=== PATIENT | male | born 1980 | race Caucasian/White ===

== ENCOUNTER 2019-02-22 07:11 | Emergency (ER) | payer MEDICAID ==
[2019-02-22] MEDS ORDERED: Ibuprofen 600 MG Tab PO ONE (07:47)
[2019-02-22] MEDS ORDERED: Doxycycline 100 MG in Sodium Chloride 0.9% 100 ML IV ONE (07:47)
--- NOTE | 2019-02-22 07:51 | EDM.PDOC ---
ED HPI GENERAL MEDICAL PROBLEM - General Chief Complaint: Skin Complaint Stated Complaint: RASH, FEVER Time Seen by Provider: 02/22/19 07:47 Source of Information: Reports: Patient History Limitations: Reports: No Limitations - History of Present Illness INITIAL COMMENTS - FREE TEXT/NARRATIVE: pt arrived with a fever and total body aches. He has been ill for about 3 days. He has not been vomiting. He has a history of a tick bite about 1 month ago. He did not have a definite tick in the last week. He has a red target looking lesion on the inner aspect of his left knee. This does have a dark spot in the center of the leson. Onset: Gradual, Other (Pt has been ill for 3 days. ) Duration: Hour(s): Location: Reports: Lower Extremity, Left, Generalized Associated Symptoms: Reports: Fever/Chills, Headaches, Malaise Left Leg Pain Score (Numeric/FACES): 7 - Related Data Allergies Allergy/AdvReac Type Severity Reaction Status Date / Time Sulfa (Sulfonamide Allergy Cannot Verified 02/22/19 07:28 Antibiotics) Remember Home Meds: Home Meds NK [No Known Home Meds] 02/22/19 [History] Past Medical History - Past Health History Medical/Surgical History: Denies Medical/Surgical History Social & Family History - Tobacco Use Smoking Status *Q: Current Every Day Smoker Years of Tobacco use: 25 Packs/Tins Daily: 0.5 - Caffeine Use Caffeine Use: Reports: Coffee - Recreational Drug Use Recreational Drug Type: Reports: Marijuana/Hashish ED ROS GENERAL - Review of Systems Review Of Systems: See Below Constitutional: Reports: Fever, Chills, Malaise, Weakness HEENT: Reports: No Symptoms Respiratory: Reports: No Symptoms Cardiovascular: Reports: No Symptoms Endocrine: Reports: No Symptoms GI/Abdominal: Reports: No Symptoms : Reports: No Symptoms Musculoskeletal: Reports: Muscle Pain, Muscle Stiffness Skin: Reports: Other ( bulls eye lesion on the left knee area. ) Neurological: Reports: Dizziness ED EXAM, SKIN/RASH Exam: See Below Text/Narrative:: pt has a lesion on the inside of the left knee. This is 4 inches in diameter. It is very red and it is firm and tender in the misddle. It is darker in the center. Exam Limited By: No Limitations General Appearance: Alert, Anxious, Mild Distress, Other (pt has a temp. ) Eye Exam: Right Eye: Papilledema Ears: Normal TMs Nose: Normal Inspection Throat/Mouth: Normal Inspection Head: Atraumatic Neck: Normal Inspection Respiratory/Chest: No Respiratory Distress Cardiovascular: Regular Rate, Rhythm GI/Abdominal: Soft, Non-Tender (Male) Exam: Deferred Rectal (Males) Exam: Deferred Back Exam: Normal Inspection Extremities: Other (pt has a large red area on the inside of the left knee. It is tender and firm in the center. He is feeling ill generally. He did have tick bites about 1 month ago. ) Neurological: Alert, Oriented Psychiatric: Normal Affect Skin: Warm, Erythema, Other (it has an appearance of a target lesion) Location, Skin: Lower Extremity, Left Characteristics: Erythematous Associated features: Warmth, Tenderness, Swelling Course - Vital Signs Last Recorded V/S: Last Vital Signs Temp 37.4 C 02/22/19 08:46 Pulse 70 02/22/19 08:46 Resp 16 02/22/19 08:46 BP 116/66 02/22/19 08:46 Pulse Ox 97 02/22/19 08:46 - Orders/Labs/Meds Orders: Active Orders 24 hr Category Date Time Status BABESIA MICROTI ANTIBODY PANEL Stat Lab 02/22/19 07:52 Received CULTURE URINE [RM] Stat Lab 02/22/19 08:22 Received HUMAN GRANULOCYTIC VIANEY-HGE Stat Lab 02/22/19 07:52 Received LYME, TOTAL AB TEST/REFLEX Stat Lab 02/22/19 07:52 Received Sodium Chloride 0.9% [Normal Saline] 1,000 ml Med 02/22/19 08:00 Active IV ASDIRECTED Medication Orders Sodium Chloride (Normal Saline) 1,000 mls @ 999 mls/hr IV ASDIRECTED MAURISIO Last Admin: 02/22/19 08:04 Dose: 999 mls/hr Labs: Laboratory Tests 02/22/19 02/22/19 02/22/19 Range/Units 07:52 07:52 07:52 WBC 7.9 (4.5-11.0) K/uL RBC 5.11 (4.30-5.90) M/uL Hgb 15.8 H (12.0-15.0) g/dL Hct 45.4 (40.0-54.0) % MCV 89 (80-98) fL MCH 31 (27-31) pg MCHC 35 (32-36) % Plt Count 203 (150-400) K/uL Neut % (Auto) 74 H (36-66) % Lymph % (Auto) 11 L (24-44) % Waldo % (Auto) 14 H (2-6) % Eos % (Auto) 0 L (2-4) % Baso % (Auto) 1 (0-1) % Sodium 136 L (140-148) mmol/L Potassium 4.2 (3.6-5.2) mmol/L Chloride 101 (100-108) mmol/L Carbon Dioxide 21 (21-32) mmol/L Anion Gap 18.2 H (5.0-14.0) mmol/L BUN 11 (7-18) mg/dL Creatinine 1.0 (0.8-1.3) mg/dL Est Cr Clr Drug Dosing 92.36 mL/min Estimated GFR (MDRD) > 60 (>60) Glucose 121 H (74-106) mg/dL Calcium 9.0 (8.5-10.1) mg/dL Total Bilirubin 0.4 (0.2-1.0) mg/dL AST 27 (15-37) U/L ALT 37 (12-78) U/L Alkaline Phosphatase 76 (46-116) U/L C-Reactive Protein 1.84 H (0.0-0.3) mg/dL Total Protein 7.5 (6.4-8.2) g/dL Albumin 3.9 (3.4-5.0) g/dL Globulin 3.6 H (2.3-3.5) g/dL Albumin/Globulin Ratio 1.1 L (1.2-2.2) Urine Color Urine Appearance Urine pH (4.5-8.0) Ur Specific [place] (1.008-1.030) Urine Protein (NEGATIVE) mg/dL Urine Glucose (UA) (NEGATIVE) mg/dL Urine Ketones (NEGATIVE) mg/dL Urine Occult Blood (NEGATIVE) Urine Nitrite (NEGAITVE) Urine Bilirubin (NEGATIVE) Urine Urobilinogen (NORMAL) mg/dL Ur Leukocyte Esterase (NEGATIVE) Urine RBC (0-5) Urine WBC (0-5) Ur Epithelial Cells Amorphous Sediment Urine Bacteria Urine Mucus 02/22/19 Range/Units 08:01 WBC (4.5-11.0) K/uL RBC (4.30-5.90) M/uL Hgb (12.0-15.0) g/dL Hct (40.0-54.0) % MCV (80-98) fL MCH (27-31) pg MCHC (32-36) % Plt Count (150-400) K/uL Neut % (Auto) (36-66) % Lymph % (Auto) (24-44) % [place] % (Auto) (2-6) % Eos % (Auto) (2-4) % Baso % (Auto) (0-1) % Sodium (140-148) mmol/L Potassium (3.6-5.2) mmol/L Chloride (100-108) mmol/L Carbon Dioxide (21-32) mmol/L Anion Gap (5.0-14.0) mmol/L BUN (7-18) mg/dL Creatinine (0.8-1.3) mg/dL Est Cr Clr Drug Dosing mL/min Estimated GFR (MDRD) (>60) Glucose (74-106) mg/dL Calcium (8.5-10.1) mg/dL Total Bilirubin (0.2-1.0) mg/dL AST (15-37) U/L ALT (12-78) U/L Alkaline Phosphatase (46-116) U/L C-Reactive Protein (0.0-0.3) mg/dL Total Protein (6.4-8.2) g/dL Albumin (3.4-5.0) g/dL Globulin (2.3-3.5) g/dL Albumin/Globulin Ratio (1.2-2.2) Urine Color Yellow Urine Appearance Clear Urine pH 5.0 (4.5-8.0) Ur Specific [place] 1.015 (1.008-1.030) Urine Protein Negative (NEGATIVE) mg/dL Urine Glucose (UA) Normal (NEGATIVE) mg/dL Urine Ketones 50 H (NEGATIVE) mg/dL Urine Occult Blood Large (NEGATIVE) Urine Nitrite Negative (NEGAITVE) Urine Bilirubin Negative (NEGATIVE) Urine Urobilinogen Normal (NORMAL) mg/dL Ur Leukocyte Esterase Negative (NEGATIVE) Urine RBC 5-10 H (0-5) Urine WBC Not seen (0-5) Ur Epithelial Cells Few Amorphous Sediment Not seen Urine Bacteria Not seen Urine Mucus Many Meds: Medications Generic Name Dose Route Start Last Admin Trade Name Carlo PRN Reason Stop Dose Admin Sodium Chloride 1,000 mls @ 999 mls/hr 02/22/19 08:00 02/22/19 08:04 Normal Saline IV 999 mls/hr ASDIRECTED MAURISIO Administration Discontinued Medications Generic Name Dose Route Start Last Admin Trade Name Carlo PRN Reason Stop Dose Admin Doxycycline Hyclate 100 mg/ 100 mls @ 100 mls/hr 02/22/19 07:47 02/22/19 08: 04 Sodium Chloride IV 02/22/19 08:46 100 mls/hr ONETIME ONE Administration Ibuprofen 600 mg 02/22/19 07:47 02/22/19 08:03 Motrin PO 02/22/19 07:48 600 mg ONETIME ONE Administration - Re-Assessments/Exams Free Text/Narrative Re-Assessment/Exam: 02/22/19 08:50 wbc is not high. His platlets are ok. Departure - Departure Time of Disposition: 08:51 Disposition: Home, Self-Care 01 Condition: Fair Clinical Impression: Acute Lyme disease - Discharge Information Referrals: PCP,None [Primary Care Provider] - Forms: ED Department Discharge Care Plan Goals: moist warm packs to the left leg, doxycyline 100mg bid, appt with Liza Shepherd at [facility] sunday or sun. - My Orders Last 24 Hours: My Active Orders 02/22/19 07:52 BABESIA MICROTI ANTIBODY PANEL Stat HUMAN GRANULOCYTIC VIANEY-HGE Stat LYME, TOTAL AB TEST/REFLEX Stat 02/22/19 08:00 Sodium Chloride 0.9% [Normal Saline] 1,000 ml IV ASDIRECTED 02/22/19 08:22 CULTURE URINE [RM] Stat - Assessment/Plan Last 24 Hours: My Active Orders 02/22/19 07:52 BABESIA MICROTI ANTIBODY PANEL Stat HUMAN GRANULOCYTIC VIANEY-HGE Stat LYME, TOTAL AB TEST/REFLEX Stat 02/22/19 08:00 Sodium Chloride 0.9% [Normal Saline] 1,000 ml IV ASDIRECTED 02/22/19 08:22 CULTURE URINE [RM] Stat
[2019-02-22] MEDS ORDERED: Sodium Chloride 0.9% 1,000 ML IV SCH (08:00)
[2019-02-26 14:08] LABS: HGE IGG TITER Negative (Neg:<1:64); HGE IGM TITER Negative (Neg:<1:20); LYME IGG/IGM AB <0.91 ISR (0.00-0.90)
[2019-02-26 17:08] LABS: BABESIA MICROTI IGG <1:10 (Neg:<1:10); BABESIA MICROTI IGM <1:10 (Neg:<1:10)
== END 2019-02-22 09:14 | disposition home or self-care (01) ==
LOC: JP.ED 07:11
DX: A69.20 Lyme disease, unspecified (principal); F17.210 Nicotine dependence, cigarettes, uncomplicated; Z88.2 Allergy status to sulfonamides
CPT/HCPCS: 36415; 80053; 81001; 85025; 86140; 86666; 86753; 87086; 96365; 99283; A9270; J3490; J7030; 86618